=== PATIENT | female | born 1960 | race Caucasian/White ===

== ENCOUNTER 2020-07-06 13:10 | Emergency (ER) | payer OTHER ==
[2020-07-06] MEDS ORDERED: IBU800 MG PO (16:35)
== END 2020-07-06 17:15 | disposition home or self-care (01) ==
LOC: ER1 13:10
DX: S83.92XA Sprain of unspecified site of left knee, initial encounter (principal); I48.91 Unspecified atrial fibrillation; Z79.01 Long term (current) use of anticoagulants; W10.9XXA Fall (on) (from) unspecified stairs and steps, initial encounter
CPT/HCPCS: 73562; 99283